=== PATIENT | female | born 1970 | race American Indian/Alaskan Native ===

== ENCOUNTER 2018-04-26 15:44 | Emergency (ER) | payer MEDICARE ==
[2018-04-26 15:59] VITALS: BP 148/71
--- NOTE | 2018-04-26 16:33 | Emergency Department Report ---
ED General Adult HPI - General Chief complaint: Dizziness Stated complaint: TREMORS/DIZZY/BACK PAIN Time Seen by Provider: 04/26/18 16:11 Source: patient Mode of arrival: Ambulatory Limitations: No Limitations - History of Present Illness Initial comments: Ms. De Jesus is a 47 -year-old female with history of essential tremor, PTSD, depression, obesity status post sleeve gastrectomy who presents with worse tremor, acute on chronic back pain and lightheadedness. Patient was diagnosed with central tremor over 6 years ago by neurologist and PCP. She recently moved from [place]. +lightheadedness dizziness over the last few days. Over the past several years she has episodic back pain which improves with muscle relaxers, heat therapy and Alleve. She's had several lumbar MRI exams with diagnoses of degenerative disc disease. She's concern for potential diabetes. Her grandmother had history of severe diabetes. Currently she is not taking any medications. In the past she has had that on several antidepressant medication. She currently does not have any suicidal ideation. -: days(s) Improves with: none Worsens with: none Associated Symptoms: denies other symptoms - Related Data Previous Rx's Medication Instructions Recorded Last Taken Type Cyclobenzaprine [Flexeril] 10 mg PO TID PRN #20 tablet 04/26/18 Unknown Rx Allergies Allergy/AdvReac Type Severity Reaction Status Date / Time latex Allergy Itching Verified 04/26/18 15:51 nickel Allergy Itching Verified 04/26/18 15:51 silver Allergy Itching Verified 04/26/18 15:51 paraphenalinediamine Allergy Rash Uncoded 04/26/18 15:51 ED Review of Systems ROS: Stated complaint: TREMORS/DIZZY/BACK PAIN Other details as noted in HPI Comment: All other systems reviewed and negative Constitutional: denies: fever, malaise Respiratory: denies: cough Cardiovascular: denies: chest pain ED Past Medical Hx - Past Medical History Previous Medical History?: Yes Hx Psychiatric Treatment: Yes (severe, depression, PTSD) Additional medical history: degenerative disc disease. essential tremors. double astygmatism. obesity - Surgical History Past Surgical History?: Yes Hx Cholecystectomy: Yes (08/1991) Additional Surgical History: vertical sleeve gastrectomy 2012. D&C x4 1985, 1990, 1993, 1994. dental 1998, 2003, 2011 - Social History Smoking Status: Current Every Day Smoker Substance Use Type: None - Medications Home Medications: Home Medications Medication Instructions Recorded Confirmed Last Taken Type Cyclobenzaprine [Flexeril] 10 mg PO TID PRN #20 tablet 04/26/18 Unknown Rx ED Physical Exam - General Limitations: No Limitations General appearance: alert, in no apparent distress - Head Head exam: Present: atraumatic, normocephalic - Eye Eye exam: Present: normal appearance - ENT ENT exam: Present: mucous membranes moist - Neck Neck exam: Present: normal inspection. Absent: tenderness, meningismus - Respiratory Respiratory exam: Present: normal lung sounds bilaterally. Absent: respiratory distress, wheezes, rales, rhonchi - Cardiovascular Cardiovascular Exam: Present: regular rate, normal rhythm, normal heart sounds. Absent: systolic murmur, diastolic murmur, rubs, gallop - GI/Abdominal GI/Abdominal exam: Present: soft, normal bowel sounds. Absent: distended, tenderness, guarding, rebound - Extremities Exam Extremities exam: Present: normal inspection - Back Exam Back exam: Present: normal inspection - Neurological Exam Neurological exam: Present: alert, oriented X3 - Psychiatric Psychiatric exam: Present: normal affect, normal mood - Skin Skin exam: Present: warm, dry, intact, normal color. Absent: rash ED Course Vital Signs 04/26/18 15:49 Temperature 98 F Pulse Rate 89 Respiratory 18 Rate Blood Pressure 148/71 O2 Sat by Pulse 100 Oximetry ED Medical Decision Making - Medical Decision Making 1. Lightheadedness possibly due to anemia or thyroid disease, no evidence of diabetes with normal blood glucose 104. Referred to outpatient medical physician 2. Essential tremor known to patient not obvious on exam today no indication of CVA 3. Acute on chronic back pain without pain at this time prescribed Flexeril, neurologically intact steady normal gait. Critical care attestation.: If time is entered above; I have spent that time in minutes in the direct care of this critically ill patient, excluding procedure time. ED Disposition Clinical Impression: Lightheadedness, History of tremor, Lumbar degenerative disc disease Disposition: - TO HOME OR SELFCARE Is pt being admited?: No Does the pt Need Aspirin: No Condition: Stable Instructions: Lightheadedness (ED) Prescriptions: Cyclobenzaprine [Flexeril] 10 mg PO TID PRN #20 tablet PRN Reason: Muscle Spasm Referrals: PEDRO KAMARA MD [Staff Physician] - 3-5 Days RICHARDSON HAYNES MD [Staff Physician] - 3-5 Days
== END 2018-04-26 16:45 | disposition home or self-care (01) ==
LOC: ED 15:44
DX: M51.36 Other intervertebral disc degeneration, lumbar region (principal); R25.1 Tremor, unspecified; F32.9 Major depressive disorder, single episode, unspecified; F43.10 Post-traumatic stress disorder, unspecified; F17.200 Nicotine dependence, unspecified, uncomplicated; Z90.49 Acquired absence of other specified parts of digestive tract; Z91.040 Latex allergy status; Z91.09 Other allergy status, other than to drugs and biological substances
CPT/HCPCS: 82962; 99283

== ENCOUNTER 2020-08-27 15:09 | Emergency (ER) | payer MEDICARE | END 2020-08-28 03:14 | disposition left against medical advice (07) | LOC: ED 15:09 ==